=== PATIENT | female | born 1990 | race Caucasian/White ===

== ENCOUNTER 2024-07-09 16:25 | Emergency (ER) | payer OTHER ==
[~2024-07-09] VITALS: Ht 165.1 cm; Wt 97.7 kg
[~2024-07-09 16:25] MED LIST: PRENATAL1 TA1 PO
[2024-07-09 16:40] VITALS: TEMP 98.1
[2024-07-09 17:43] LABS: BASO # 0.1 K/mm3 (0.0-0.2); BASO % 0.6 % (0.0-2.0); EOS # 0.7 K/mm3 (0.0-0.7); EOS % 8.5 % (0.0-4.0); GRAN # 3.3 K/mm3 (1.4-6.5); HEMATOCRIT 40.1 % (37.0-47.0); HEMOGLOBIN 13.5 g/dl (12.5-16.0); LYMPH # 3.6 K/mm3 (1.2-3.4); LYMPH % 42.7 % (20.0-51.0); MEAN CELL VOLUME 86 fl (80.0-100.0); MEAN CORPUSCULAR HEMOGLOBIN 29 pg (27-31); MEAN CORPUSCULAR HGB CONC 34 g/dl (33.0-37.0); MEAN PLATELET VOLUME 11.4 fl (7.4-10.4); MONO # 0.8 K/mm3 (0.1-0.6); MONO % 9.1 % (1.7-9.3); PLATELET COUNT 219 K/mm3 (130-400); RED BLOOD COUNT 4.67 M/mm3 (4.10-5.30); REDCELL DISTRIBUTION WIDTH-CV 13.1 % (11.5-14.5)
[2024-07-09 17:49] LABS: URINE APPEARANCE CLEAR (CLEAR/HAZY); URINE BLOOD NEGATIVE (NEGATIVE); URINE COLOR YELLOW (YELLOW); URINE GLUCOSE NEGATIVE (NEGATIVE); URINE KETONE NEGATIVE (NEGATIVE); URINE NITRATE NEGATIVE (NEGATIVE); URINE PROTEIN(semi-quant) NEGATIVE (NEGATIVE)
[2024-07-09 17:51] LABS: COLLECTION METHOD CLEAN CATCH
[2024-07-09 17:57] LABS: BILIRUBIN,TOTAL 0.7 mg/dL (0.2-1.2); CALCIUM 9.1 mg/dL (8.4-10.2); CREATININE, serum 0.87 mg/dL (0.57-1.11); POTASSIUM 3.6 mEq/L (3.5-4.5); TOTAL PROTEIN 7.2 g/dl (6.2-8.1)
[2024-07-09] MEDS ORDERED: Ketorolac 30 MG/ML VIAL IV ONE (18:30)
[2024-07-09] MEDS ORDERED: PEPCID 20MG TAB20 MG PO (18:44)
[2024-07-09 18:54] VITALS: BP 150/94; PULSE 68
== END 2024-07-09 18:55 | disposition home or self-care (01) ==
LOC: COL.ER 16:25
PROVIDERS: Nurse Practitioner Primary Care
DX: R10.10 Upper abdominal pain, unspecified (principal); F17.290 Nicotine dependence, other tobacco product, uncomplicated
CPT/HCPCS: J0780; J1885

== ENCOUNTER 2024-07-12 02:02 | Emergency (ER) | payer OTHER ==
[~2024-07-12] VITALS: Ht 165.1 cm; Wt 99.1 kg
[~2024-07-12 02:02] MED LIST changes: +PEPCID 20MG TAB20 MG PO
[2024-07-12 02:19] VITALS: TEMP 98.6
[2024-07-12] MEDS ORDERED: Morphine 4 MG/ML VIAL IV ONE (02:30)
[2024-07-12] MEDS ORDERED: Ondansetron 4 MG/2 ML VIAL IV ONE (02:30)
[2024-07-12] MEDS ORDERED: NS 1,000 ML IV ONE (02:30)
[2024-07-12 02:40] LABS: BASO # 0.1 K/mm3 (0.0-0.2); BASO % 0.8 % (0.0-2.0); EOS # 0.8 K/mm3 (0.0-0.7); EOS % 9.4 % (0.0-4.0); GRAN # 2.9 K/mm3 (1.4-6.5); GRAN % 35.9 % (42.2-75.2); HEMATOCRIT 43.1 % (37.0-47.0); HEMOGLOBIN 14.9 g/dl (12.5-16.0); LYMPH # 3.6 K/mm3 (1.2-3.4); LYMPH % 44.9 % (20.0-51.0); MEAN CELL VOLUME 84 fl (80.0-100.0); MEAN CORPUSCULAR HEMOGLOBIN 29 pg (27-31); MEAN CORPUSCULAR HGB CONC 35 g/dl (33.0-37.0); MEAN PLATELET VOLUME 11.7 fl (7.4-10.4); MONO # 0.7 K/mm3 (0.1-0.6); RED BLOOD COUNT 5.15 M/mm3 (4.10-5.30); REDCELL DISTRIBUTION WIDTH-CV 12.8 % (11.5-14.5)
[2024-07-12 02:48] LABS: PLATELET COUNT 115 K/mm3 (130-400)
[2024-07-12 02:59] LABS: ALBUMIN 3.9 g/dL (3.5-5.0); BILIRUBIN,TOTAL 0.6 mg/dL (0.2-1.2); C-REACTIVE PROTEIN 0.09 mg/dL (0.00-0.50); CALCIUM 8.9 mg/dL (8.4-10.2); CREATININE, serum 0.91 mg/dL (0.57-1.11); POTASSIUM 3.7 mEq/L (3.5-4.5); TOTAL PROTEIN 7.1 g/dl (6.2-8.1)
[2024-07-12] MEDS ORDERED: NS 50 ML IV SCH (03:01)
[2024-07-12] MEDS ORDERED: Iohexol 300 - 100 ML VIAL IV ONE (03:01)
[2024-07-12] MEDS ORDERED: DOXYCYCLINE 10100 MG PO (03:45)
[2024-07-12] MEDS ORDERED: CARAFATE 1GM1 G PO (03:45)
[2024-07-12] MEDS ORDERED: Doxycycline Monohydrate 100 MG CAP PO ONE (04:00)
[2024-07-12 04:14] VITALS: BP 157/99; PULSE 58
== END 2024-07-12 04:14 | disposition home or self-care (01) ==
LOC: COL.ER 02:02
PROVIDERS: Emergency Medicine
DX: R10.84 Generalized abdominal pain (principal); L03.90 Cellulitis, unspecified; F17.200 Nicotine dependence, unspecified, uncomplicated; Z79.899 Other long term (current) drug therapy
CPT/HCPCS: J2270; J2405; J7030; Q9967